=== PATIENT | female | born 1960 | race Two or more races ===

== ENCOUNTER 2016-10-02 21:17 | Emergency (ER) | payer OTHER ==
--- NOTE | ~2016-10-02 | CT71 ---
[facility] A Service of [facility] RADIOLOGY TEXT RESULTS PATIENT: LETTY GOLD LOCATION: [facility] : 62 UNIT #: [id number] AGE: [address]: Thompson Pretty MD SEX: F ORDER DR: [id number] [facility] [address] [place], [place] [address] [id number] E MR#: [id number] Acc #: [id number] NAME: LETTY GOLD : 1960 SEX: F STUDY DATE/TIME: 10/02/2016 21:52 UNIT: [facility] ROOM: STUDY DESCRIPTION: CT Head Wo Contrast Attending Physician: Thompson Pretty Ordering Physician: Ed Hernan Lay M.D. Primary Care Physician: Joelle Veliz [facility] IMAGING REPORT This report is preliminary unless electronic signature is present EXAM CT head 10/02/2016 HISTORY Dizziness today, new onset today, has been passing out today. Denies hitting head. lethargic. TECHNIQUE CT head performed skull base through vertex without intravenous contrast. COMPARISON No comparisons FINDINGS Brain stem unremarkable. Cerebellum and cerebral hemispheres show normal ashton matter - white matter differentiation. No hemorrhage. No evidence of acute cortical ischemia. Midline structures nondisplaced. Basal ganglia intact. Ventricles, cisterns, sulci, normal in size and contour. No intra or extra axial mass effect or abnormal intracranial fluid collection. The visualized intraorbital soft tissues are unremarkable. Visualized paranasal sinuses and mastoid air cells are clear. No fracture. IMPRESSION Normal CT of the head. If the patient has ongoing neurologic symptoms, consider follow up imaging, preferably with MRI if patient is candidate. Dictated by... Felix Blanton M.D. THIS IS AN ELECTRONICALLY VERIFIED REPORT [facility] A Service of [facility] RADIOLOGY TEXT RESULTS PATIENT: LETTY GOLD LOCATION: [facility] : 62 UNIT #: [id number] AGE: [address]: Thompson Pretty MD SEX: F ORDER DR: Fleix Blanton M.D. at 10/03/2016 2:17 PM PRAVEEN/francois TD: 10/03/2016 11:19 JOB #: [id number] MEDICAL IMAGING REPORT Page 1 of 1 COPY
--- NOTE | ~2016-10-02 | EKG ---
PATIENT: LETTY GOLD UNIT #: [id number] Ventricular Rate: 67 BPM Atrial Rate: 67 BPM P-R Interval: 172 ms QRS Duration: 80 ms Q-T Interval: 408 ms QTC Calculation(Bezet): 431 ms P [place]: 61 degrees Calculated R [place]: 70 degrees Calculated T [place]: 73 degrees Diagnosis Line: Normal sinus rhythm Diagnosis Line: Septal infarct , age undetermined Diagnosis Line: Abnormal ECG Diagnosis Line: When compared with ECG of 02-SEP-2016 13:51, Diagnosis Line: No significant change was found Diagnosis Line: Confirmed by KAYLIE MURPHY MD ([id number]) on Diagnosis Line: 10/03/2016 2:25:32 PM INTERPRETING MD: KATHERINE KOCH
[2016-10-02 18:40] LABS: BASOPHIL% 0.4 % (0-2.5); EOSINOPHIL# 0.1 X10e3 (0-0.7); EOSINOPHIL% 1.2 % (0.0-7.0); HEMATOCRIT 39.2 % (35.0-45.0); HEMOGLOBIN 12.3 gm/dL (12.0-16.0); LYMPHOCYTE# 1.8 X10e3 (1.0-3.5); LYMPHOCYTE% 32.7 % (17.0-45.0); MEAN CELL VOLUME 76.5 FL (83-96); MEAN CORPUSCULAR HGB CONC 31.3 g/dL (30-36); MEAN PLATELET VOLUME 8.4 FL (6.5-11.5); MONOCYTE# 0.4 X10e3 (0-1.0); MONOCYTE% 7.3 % (3.0-12.0); NEUTROPHIL# 3.3 X10e3 (1.5-7.1); NEUTROPHIL% 58.4 % (40-75); PLATELET COUNT 188 X10e3 (140-420); RED BLOOD COUNT 5.13 X10e (3.90-5.30); RED CELL DISTRIBUTION WIDTH 15.4 % (11.0-15.5); WHITE BLOOD COUNT 5.6 X10e3 (4.0-10.5)
[2016-10-02 18:42] LABS: DIFF IND NO
[2016-10-02 19:02] LABS: ALBUMIN SERUM 4.1 g/dL (3.5-5.0); ALKALINE PHOSPHATASE 61 U/L (32-92); ALT (SGPT) 16 U/L (10-40); AST (SGOT) 26 U/L (10-42); BILIRUBIN, DIRECT 0.1 mg/dL (0.0-0.2); BILIRUBIN,INDIRECT 0.6 mg/dL (0.0-0.9); BILIRUBIN,TOTAL 0.7 mg/dL (0.2-2.0); BLOOD UREA NITROGEN 12 mg/dL (9-23); CALCIUM SERUM 8.8 mg/dL (8.4-10.2); CARBON DIOXIDE 29 mmol/L (22-31); CHLORIDE 108 mmol/L (100-111); CREATININE SERUM 0.8 mg/dL (0.6-1.4); GLOM FILT RATE Estimated ABOVE60 mL/min (>60); GLUCOSE FASTING 108 mg/dL (70-110); POTASSIUM 3.5 mmol/L (3.5-5.1); PROTEIN TOTAL SERUM 7.2 g/dL (6.0-8.3); SODIUM 141 mmol/L (135-145)
[~2016-10-02 21:17] MED LIST: ISONIAZID300 MG PO; PANTOPRAZOLE SO40 MG PO
[2016-10-02 22:53] LABS: URINE SOURCE CLEAN CATCH
[2016-10-02 22:57] LABS: URINE APPEARANCE TURBID; URINE BILIRUBIN NEG (NEG); URINE BLOOD NEG (NEG); URINE COLOR YELLOW; URINE GLUCOSE NEG (NEG); URINE KETONE TRACE (NEG); URINE LEUKOCYTE ESTERASE 1+ (NEG); URINE NITRATE NEG (NEG); URINE PH 8.5 (5-8); URINE PROTEIN NEG (NEG); URINE SPECIFIC GRAVITY 1.019 (1.003-1.035); URINE UROBILINOGEN 0.2 MG/DL (NEG)
[2016-10-02 22:58] LABS: CULTURE INDICATED? YES; URBCS1 AUWI 0-2 /[HPF] (0-2); URINE BACTERIA AUWI NEG (NEGATIVE); URINE SQUAMOUS EPITHELIAL CELL OCC /[HPF]
[2016-10-03 00:01] LABS: POC - TROPONIN <0.05 ng/mL (<=0.05)
[2016-10-03 01:57] LABS: POC - CKMB <1.0 ng/mL (0.0-7.9); POC - TROPONIN <0.05 ng/mL (<=0.05)
[2017-04-10] MEDS ORDERED: NO MEDICATIONS (07:46)
== END 2016-10-03 02:44 | disposition home or self-care (01) ==
LOC: CED 21:17
PROVIDERS: Emergency Medicine
DX: N39.0 Urinary tract infection, site not specified (principal); I95.9 Hypotension, unspecified; J44.9 Chronic obstructive pulmonary disease, unspecified
CPT/HCPCS: 36415; 70450; 80048; 80076; 81003; 82553; 84484; 85025; 87086; 93005; 99284; J2405

== ENCOUNTER 2016-12-08 19:40 | Emergency (ER) | payer OTHER ==
--- NOTE | ~2016-12-08 | CT71 ---
[facility] A Service of [facility] RADIOLOGY TEXT RESULTS PATIENT: LETTY GOLD LOCATION: [facility] : 62 UNIT #: [id number] AGE: [address]: Thompson Pretty MD SEX: F ORDER DR: [id number] [facility] [address] [place], [place] [address] [id number] E MR#: [id number] Acc #: [id number] NAME: LETTY GOLD : 1960 SEX: F STUDY DATE/TIME: 12/08/2016 22:05 UNIT: [facility] ROOM: STUDY DESCRIPTION: CT Head Wo Contrast Attending Physician: Siva Pretty M.D. Ordering Physician: Ahmet Lay M.D. Primary Care Physician: Joelle Alarcon A.P.R.N. MEDICAL IMAGING REPORT This report is preliminary unless electronic signature is present EXAM CT brain without contrast HISTORY Dizzy. Head numbness. Symptoms for [address] exam was performed with one or more of the following radiation dose reduction techniques: automatic control, adjustment of mA and/or kV according to patient size, and iterative reconstruction. FINDINGS Axial noncontrast images were obtained from the skull base to the vertex. Ventricular size and configuration are normal. There is no evidence of acute infarct or hemorrhage. There are no extra-axial fluid collections. No mass lesion or mass effect is seen. There are no skull fractures. IMPRESSION Normal noncontrast head CT. Dictated by... Basil Bansal M.D. THIS IS AN ELECTRONICALLY VERIFIED REPORT Basil Bansal M.D. at 12/11/2016 10:20 AM ABIGAIL/joseluis TD: 12/09/2016 06:34 JOB #: [id number] MEDICAL IMAGING REPORT Page 1 of 1 COPY
--- NOTE | ~2016-12-08 | EKG ---
PATIENT: LETTY GOLD UNIT #: [id number] Ventricular Rate: 58 BPM Atrial Rate: 58 BPM P-R Interval: 186 ms QRS Duration: 76 ms Q-T Interval: 444 ms QTC Calculation(Bezet): 435 ms P [place]: 57 degrees Calculated R [place]: 58 degrees Calculated T [place]: 61 degrees Diagnosis Line: Sinus bradycardia Diagnosis Line: Septal infarct (cited on or before 02-SEP-2016) Diagnosis Line: Abnormal ECG Diagnosis Line: When compared with ECG of 02-OCT-2016 18:03, Diagnosis Line: No significant change was found Diagnosis Line: Confirmed by BEBETO MORENO MD ([id number]) on Diagnosis Line: 12/11/2016 9:36:46 PM INTERPRETING MD: TIFFANIE KOCH
--- NOTE | ~2016-12-08 | CR72 ---
[facility] A Service of [facility] RADIOLOGY TEXT RESULTS PATIENT: LETTY GOLD LOCATION: [facility] : 62 UNIT #: [id number] AGE: [address]: Thompson Pretty MD SEX: F ORDER DR: [id number] [facility] [address] [place], [place] [address] [id number] E MR#: [id number] Acc #: [id number] NAME: LETTY GOLD : 1960 SEX: F STUDY DATE/TIME: 12/08/2016 21:18 UNIT: [facility] ROOM: STUDY DESCRIPTION: CR Chest Single View Portable Attending Physician: Thompson Pretty Ordering Physician: Ed Doctor [id number] [facility] Primary Care Physician: Joelle Veliz [facility] IMAGING REPORT This report is preliminary unless electronic signature is present EXAM Portable chest HISTORY Chest pain for 3 days. COPD. FINDINGS Patchy rounded nodular density along the lateral margin of the inferior right hilum is very similar to prior studies 10/07/2015 and 05/19/2015, measuring close to 1.5 cm x 1.9 cm in craniocaudal and transverse dimensions. Given its stability over this time frame, a benign etiology is favored. Continued followup is recommended with repeat chest x-ray 06/04/17 in order to document stability over a 2-year time interval. Alternatively, this could be further evaluated with CT chest. Mild cardiac enlargement. Pulmonary vascularity normal. Mild right upper thoracic curve. Mild fibrotic scarring in the lung apices. IMPRESSION 1. Stable patchy nodular lesion along the inferior right hilum compared to prior studies dating back to 06/04/15. A benign etiology is favored given its stability. Followup chest x-ray is recommended in 06/04/17. 2. Mild cardiac enlargement. Dictated by... Basil Bansal M.D. THIS IS AN ELECTRONICALLY VERIFIED REPORT Basil Bansal M.D. at 12/11/2016 10:[address] [facility] A Service of [facility] RADIOLOGY TEXT RESULTS PATIENT: LETTY GOLD [id number] 62 UNIT #: [id number] AGE: [address]: Thompson Pretty MD SEX: F ORDER DR: Kerline TD: 12/09/2016 03:30 JOB #: [id number] MEDICAL IMAGING REPORT Page 1 of 1 COPY
[2016-12-08 21:20] LABS: BASOPHIL% 0.4 % (0-2.5); EOSINOPHIL% 0.7 % (0.0-7.0); HEMATOCRIT 36.2 % (35.0-45.0); HEMOGLOBIN 11.5 gm/dL (12.0-16.0); LYMPHOCYTE# 1.9 X10e3 (1.0-3.5); LYMPHOCYTE% 36.6 % (17.0-45.0); MEAN CELL VOLUME 77.5 FL (83-96); MEAN CORPUSCULAR HEMOGLOBIN 24.6 PG (28-34); MEAN CORPUSCULAR HGB CONC 31.7 g/dL (30-36); MEAN PLATELET VOLUME 8.4 FL (6.5-11.5); MONOCYTE# 0.5 X10e3 (0-1.0); MONOCYTE% 8.8 % (3.0-12.0); NEUTROPHIL# 2.8 X10e3 (1.5-7.1); NEUTROPHIL% 53.5 % (40-75); PLATELET COUNT 182 X10e3 (140-420); RED BLOOD COUNT 4.67 X10e (3.90-5.30); RED CELL DISTRIBUTION WIDTH 15.3 % (11.0-15.5); WHITE BLOOD COUNT 5.2 X10e3 (4.0-10.5)
[2016-12-08 21:21] LABS: DIFF IND NO
[2016-12-08 21:42] LABS: ALBUMIN SERUM 3.9 g/dL (3.5-5.0); BILIRUBIN, DIRECT 0.1 mg/dL (0.0-0.2); BILIRUBIN,INDIRECT 0.5 mg/dL (0.0-0.9); BILIRUBIN,TOTAL 0.6 mg/dL (0.2-2.0); BUN/CREATININE RATIO 26.66; CALCIUM SERUM 8.4 mg/dL (8.4-10.2); CREATININE SERUM 0.6 mg/dL (0.6-1.4); GLOM FILT RATE Estimated 102.6 mL/min (>60); POTASSIUM 3.7 mmol/L (3.5-5.1); PROTEIN TOTAL SERUM 6.5 g/dL (6.0-8.3)
[2016-12-08 21:44] LABS: POC - CKMB <1.0 ng/mL (0.0-7.9); POC - TROPONIN <0.05 ng/mL (<=0.05)
[2017-04-10] MEDS ORDERED: NO MEDICATIONS (07:46)
[2017-04-11] MEDS ORDERED: ALBUTEROL17 GM PO (04:06)
[2017-04-11] MEDS ORDERED: MOTION RELIEF25 MG PO (04:07)
[2017-04-11] MEDS ORDERED: IBUPROFEN400 MG PO (04:09)
[2017-04-11] MEDS ORDERED: HYDROXYZINE PAM25 MG PO (04:12)
[2017-04-11] MEDS ORDERED: BENZONATATE PO (04:15)
[2017-04-11] MEDS ORDERED: FLONASE 0.05% N16 GM (04:15)
== END 2016-12-08 23:44 | disposition home or self-care (01) ==
LOC: CED 19:40
PROVIDERS: Emergency Medicine
DX: R42 Dizziness and giddiness (principal); J44.9 Chronic obstructive pulmonary disease, unspecified
CPT/HCPCS: 36415; 70450; 71010; 80048; 80076; 82553; 84484; 85025; 93005; 99284

== ENCOUNTER 2017-02-13 16:04 | Emergency (ER) | payer OTHER ==
[~2017-02-13] VITALS: Ht 147.3 cm; Wt 49.9 kg
--- NOTE | ~2017-02-13 | CR195 ---
[facility] A Service of [facility] RADIOLOGY TEXT RESULTS PATIENT: LETTY GOLD LOCATION: [facility] : 62 UNIT #: [id number] AGE: [address]: Penelope Brown MD SEX: F ORDER DR: [id number] [facility] [address] [place], [place] [address] [id number] E MR#: [id number] Acc #: [id number] NAME: LETTY GOLD : 1960 SEX: F STUDY DATE/TIME: 02/13/2017 18:01 UNIT: [facility] ROOM: STUDY DESCRIPTION: ALLIE Neck Soft Tissue Attending Physician: Penelope Brown M.D. Referring Physician: Joelle Alarcon A.P.R.N. Ordering Physician: Penelope Brown M.D. Primary Care Physician: Joelle Alarcon A.P.R.N. MEDICAL IMAGING REPORT This report is preliminary unless electronic signature is present EXAM Neck soft tissue series 02/13/2017 HISTORY 56-year-old female with throat pain and cough for 1 week after taking medicine. COMPARISON None. FINDINGS 2 views of the neck soft tissues were performed. The epiglottis and aryepiglottic folds are within normal limits. Prevertebral soft tissues are normal. No radiopaque foreign bodies. No acute bony abnormality. IMPRESSION Unremarkable neck soft tissue series Dictated by... Hiram Rivero M.D. THIS IS AN ELECTRONICALLY VERIFIED REPORT Hiram Rivero M.D. at 02/14/2017 7:52 AM STEVEN/joseluis TD: 02/13/2017 19:56 JOB #: [id number] MEDICAL IMAGING REPORT Page 1 of 1 COPY
--- NOTE | ~2017-02-13 | CR63 ---
[facility] A Service of [facility] RADIOLOGY TEXT RESULTS PATIENT: LETTY GOLD LOCATION: [facility] : 62 UNIT #: [id number] AGE: [address]: Penelope Brown MD SEX: F ORDER DR: [id number] [facility] [address] [place], [place] [address] [id number] E MR#: [id number] Acc #: [id number] NAME: LETTY GOLD : 1960 SEX: F STUDY DATE/TIME: 02/13/2017 UNIT: [facility] ROOM: STUDY DESCRIPTION: CR Chest 2 View Attending Physician: Penelope Brown M.D. Referring Physician: Joelle Moreira Ordering Physician: Penelope Brown M.D. Primary Care Physician: Joelle Moreira MEDICAL IMAGING REPORT This report is preliminary unless electronic signature is present EXAM Two views chest. HISTORY Cough. Chest discomfort, short of air with activity. Cough, throat pain one week ago symptoms began. REPORT PA and lateral radiographs of the chest are presented. COMPARISON 08/31/2016, 12/08/2016, 05/19/2015. FINDINGS Stable mild cardiac enlargement. Lungs well inflated. Calcified granulomata bilaterally. Bilateral nipple shadow artifacts unchanged from prior examinations. Nodular density in the lateral right hilar/infrahilar region measuring about 1.8 cm in diameter unchanged from prior examinations dating to 2014, and therefore, felt to be benign in nature. No new nodular densities. There is no dense airspace disease, pleural effusion or pneumothorax. The mediastinal contours are stable. There is no acute bony abnormality. Dictated by... Felix Blanton M.D. THIS IS AN ELECTRONICALLY VERIFIED REPORT Felix Blanton M.D. at 02/15/2017 1:22 PM [facility] A Service of [facility] RADIOLOGY TEXT RESULTS PATIENT: LETTY GOLD LOCATION: [facility] : 62 UNIT #: [id number] AGE: [address]: Penelope Brown MD SEX: F ORDER DR: PRAVEEN/annette TD: 02/13/2017 20:08 JOB #: [id number] MEDICAL IMAGING REPORT Page 1 of 1 COPY
[2017-04-10] MEDS ORDERED: NO MEDICATIONS (07:46)
[2017-04-11] MEDS ORDERED: ALBUTEROL17 GM PO (04:06)
[2017-04-11] MEDS ORDERED: MOTION RELIEF25 MG PO (04:07)
[2017-04-11] MEDS ORDERED: IBUPROFEN400 MG PO (04:09)
[2017-04-11] MEDS ORDERED: HYDROXYZINE PAM25 MG PO (04:12)
[2017-04-11] MEDS ORDERED: BENZONATATE PO (04:15)
[2017-04-11] MEDS ORDERED: FLONASE 0.05% N16 GM (04:15)
== END 2017-02-13 20:02 | disposition home or self-care (01) ==
LOC: CED 16:04
DX: J02.9 Acute pharyngitis, unspecified (principal); J44.9 Chronic obstructive pulmonary disease, unspecified
CPT/HCPCS: 70360; 71020; 87651; 99284

== ENCOUNTER 2017-02-22 18:51 | Emergency (ER) | payer OTHER ==
[~2017-02-22] VITALS: Ht 152.4 cm; Wt 45.4 kg
--- NOTE | ~2017-02-22 | CT16 ---
[facility] A Service of [facility] RADIOLOGY TEXT RESULTS PATIENT: LETTY GOLD LOCATION: [facility] : 62 UNIT #: [id number] AGE: [address]: Felix Terrazas SEX: F ORDER DR: [id number] [facility] [address] [place], [place] [address] [id number] E MR#: [id number] Acc #: [id number] NAME: LETTY GOLD : 1960 SEX: F STUDY DATE/TIME: 02/22/2017 21:25 UNIT: [facility] ROOM: STUDY DESCRIPTION: CT Angio Chest for PE Attending Physician: Felix Terrazas P.A.-C. Ordering Physician: Felix Terrazas P.A.-C. Primary Care Physician: Joelle Alarcon A.P.R.N. MEDICAL IMAGING REPORT This report is preliminary unless electronic signature is present EXAM Chest CT angiogram with contrast, 02/22/2017 PROCEDURE Axial contrast-enhanced chest CT angiogram with three-dimensional reformats. This CT exam was performed with one or more of the following radiation dose reduction techniques: Automatic exposure control, adjustment of mA and/or kV according to patient size, and iterative reconstruction. COMPARISON None HISTORY One-week history of cough and dyspnea. FINDINGS There is no consolidation, and there is no pneumothorax or effusion. The thoracic aorta is normal in caliber, and bolus timing is excellent. The pulmonary arteries are well opacified. There are areas of pulmonary parenchymal calcified nodules and/or masses and there are some calcified hilar lymph nodes. There is no convincing evidence of pulmonary embolism, however. There is no acute bony abnormality, but there is some bronchial wall thickening and/or narrowing in the right upper lobe anterior segment and in the right middle lobe. Images of the upper abdomen are unremarkable. IMPRESSION 1. There is soft tissue fullness with some bronchial wall thickening and [facility] RADIOLOGY TEXT RESULTS PATIENT: LETTY GOLD LOCATION: [facility] : 62 UNIT #: [id number] AGE: [address]: Felix Terrazas SEX: F ORDER DR: narrowing in the right upper lobe anterior segment and right middle lobe and in the left hilum as well, with partially calcified right middle lobe soft tissue process and a similar process in the right upper lobe and right lower lobe. Findings are concerning for possible mycobacterial infection, including TB or atypical mycobacteria. Fungal process could cause this similar finding. 2. There is no evidence of pulmonary embolism. There is no effusion or pneumothorax, though there are some additional smaller pulmonary nodules or micronodules as well, and again mycobacterial infection, including both typical and atypical agents, should be considered. Dictated by... Ming Willis M.D. THIS IS AN ELECTRONICALLY VERIFIED REPORT Ming Willis M.D. at 03/02/2017 4:55 PM TEV/psc TD: 02/23/2017 04:07 JOB #: [id number] MEDICAL IMAGING REPORT Page 1 of 1 COPY
[2017-02-22 20:20] LABS: BASOPHIL% 0.3 % (0-2.5); DIFF IND NO; HEMATOCRIT 40.3 % (35.0-45.0); HEMOGLOBIN 12.7 gm/dL (12.0-16.0); LYMPHOCYTE# 0.7 X10e3 (1.0-3.5); LYMPHOCYTE% 11.4 % (17.0-45.0); MEAN CELL VOLUME 77.9 FL (83-96); MEAN CORPUSCULAR HEMOGLOBIN 24.5 PG (28-34); MEAN CORPUSCULAR HGB CONC 31.5 g/dL (30-36); MEAN PLATELET VOLUME 8.7 FL (6.5-11.5); MONOCYTE# 0.1 X10e3 (0-1.0); MONOCYTE% 2.3 % (3.0-12.0); NEUTROPHIL# 5.6 X10e3 (1.5-7.1); PLATELET COUNT 221 X10e3 (140-420); RED BLOOD COUNT 5.18 X10e (3.90-5.30); RED CELL DISTRIBUTION WIDTH 14.7 % (11.0-15.5); WHITE BLOOD COUNT 6.5 X10e3 (4.0-10.5)
[2017-02-22 20:35] LABS: ALBUMIN SERUM 4.3 g/dL (3.5-5.0); BILIRUBIN, DIRECT 0.1 mg/dL (0.0-0.2); BILIRUBIN,INDIRECT 0.3 mg/dL (0.0-0.9); BILIRUBIN,TOTAL 0.4 mg/dL (0.2-2.0); BUN/CREATININE RATIO 22.85; CALCIUM SERUM 8.9 mg/dL (8.4-10.2); CREATININE SERUM 0.7 mg/dL (0.6-1.4); GLOM FILT RATE Estimated 97.5 mL/min (>60); POTASSIUM 3.5 mmol/L (3.5-5.1); PROTEIN TOTAL SERUM 7.4 g/dL (6.0-8.3)
[2017-04-10] MEDS ORDERED: NO MEDICATIONS (07:46)
[2017-04-11] MEDS ORDERED: ALBUTEROL17 GM PO (04:06)
[2017-04-11] MEDS ORDERED: MOTION RELIEF25 MG PO (04:07)
[2017-04-11] MEDS ORDERED: IBUPROFEN400 MG PO (04:09)
[2017-04-11] MEDS ORDERED: HYDROXYZINE PAM25 MG PO (04:12)
[2017-04-11] MEDS ORDERED: BENZONATATE PO (04:15)
[2017-04-11] MEDS ORDERED: FLONASE 0.05% N16 GM (04:15)
== END 2017-02-22 23:18 | disposition home or self-care (01) ==
LOC: CED 18:51 → CFTX 18:51
PROVIDERS: Physician Assistant
DX: R05 Cough (principal); J44.9 Chronic obstructive pulmonary disease, unspecified
CPT/HCPCS: 36415; 71275; 80048; 80076; 85025; 85379; 96360; 99284; Q9967

== ENCOUNTER 2017-02-25 00:20 | Emergency (ER) | payer OTHER ==
--- NOTE | ~2017-02-25 | CR72 ---
[facility] A Service of [facility] RADIOLOGY TEXT RESULTS PATIENT: LETTY GOLD LOCATION: [facility] : 62 UNIT #: [id number] AGE: [address]: Max Schultz MD SEX: F ORDER DR: [id number] [facility] [address] [place], [place] [address] [id number] E MR#: [id number] Acc #: [id number] NAME: LETTY GOLD : 1960 SEX: F STUDY DATE/TIME: 02/25/2017 01:15 UNIT: [facility] ROOM: STUDY DESCRIPTION: CR Chest Single View Portable Attending Physician: Max Schultz M.D. Ordering Physician: Max Schultz M.D. Primary Care Physician: Joelle Alarcon A.P.R.N. MEDICAL IMAGING REPORT This report is preliminary unless electronic signature is present EXAM Chest portable 02/25 0115 hours INDICATIONS Shortness of air, cough, congestion for 2 days. FINDINGS AP portable chest compared with chest x-ray from 02/13/[address] from 02/22/2017. Heart size stable. Partially calcified nodules in both lungs, including in the right infrahilar lung and right base, are stable from the prior chest x-ray and prior chest CT. No definite new infiltrates. No pneumothorax. Dictated by... Max Dickerson Jr., M.D. THIS IS AN ELECTRONICALLY VERIFIED REPORT Max Dickerson Jr., M.D. at 02/26/2017 3:13 AM NGUYEN/belen TD: 02/25/2017 20:50 JOB #: [id number] MEDICAL IMAGING REPORT Page 1 of 1 COPY
[2017-04-10] MEDS ORDERED: NO MEDICATIONS (07:46)
[2017-04-11] MEDS ORDERED: ALBUTEROL17 GM PO (04:06)
[2017-04-11] MEDS ORDERED: MOTION RELIEF25 MG PO (04:07)
[2017-04-11] MEDS ORDERED: IBUPROFEN400 MG PO (04:09)
[2017-04-11] MEDS ORDERED: HYDROXYZINE PAM25 MG PO (04:12)
[2017-04-11] MEDS ORDERED: BENZONATATE PO (04:15)
[2017-04-11] MEDS ORDERED: FLONASE 0.05% N16 GM (04:15)
== END 2017-02-25 02:53 | disposition home or self-care (01) ==
LOC: CED 00:20
DX: J40 Bronchitis, not specified as acute or chronic (principal)
CPT/HCPCS: 71010; 94640; 99284

== ENCOUNTER 2017-02-27 00:48 | Emergency (ER) | payer OTHER ==
[~2017-02-27] VITALS: Ht 144.8 cm; Wt 43.1 kg
--- NOTE | ~2017-02-27 | CR72 ---
[facility] A Service of [facility] RADIOLOGY TEXT RESULTS PATIENT: LETTY GOLD LOCATION: [facility] : 62 UNIT #: [id number] AGE: [address]: Clementina Roy APRN SEX: F ORDER DR: [id number] [facility] [address] [place], [place] [address] [id number] E MR#: [id number] Acc #: [id number] NAME: LETTY GOLD : 1960 SEX: F STUDY DATE/TIME: 02/27/2017 04:33 UNIT: [facility] ROOM: STUDY DESCRIPTION: CR Chest Single View Portable Attending Physician: Clementina Roy A.P.R.N. Ordering Physician: Clementina Roy A.P.R.N. Primary Care Physician: Joelle Alarcon A.P.R.N. MEDICAL IMAGING REPORT This report is preliminary unless electronic signature is present EXAM Portable chest, 02/27 at 04:33. INDICATIONS Headache, cough and shortness of air for 2 weeks. FINDINGS AP portable chest compared with 02/25/[address] from 02/22/2017. Cardiac and mediastinal contours are stable. There is emphysema. There is granulomatous disease most pronounced in the right middle lobe. There is chronic scarring at the right base. No acute findings. No pneumothorax. IMPRESSION No active disease. Granulomatous changes are again identified with scarring at the right base. Dictated by... Max Dickerson Jr., M.D. THIS IS AN ELECTRONICALLY VERIFIED REPORT Max Dickerson Jr., M.D. at 02/28/2017 6:04 AM NGUYEN/lawson TD: 02/27/2017 10:21 JOB #: [id number] MEDICAL IMAGING REPORT Page 1 of 1 COPY
[2017-02-27 04:15] LABS: URINE SOURCE CLEAN CATCH
[2017-02-27 04:21] LABS: BASOPHIL% 0.4 % (0-2.5); EOSINOPHIL# 0.1 X10e3 (0-0.7); EOSINOPHIL% 1.2 % (0.0-7.0); HEMATOCRIT 39.8 % (35.0-45.0); HEMOGLOBIN 13.1 gm/dL (12.0-16.0); LYMPHOCYTE# 1.1 X10e3 (1.0-3.5); LYMPHOCYTE% 18.9 % (17.0-45.0); MEAN CELL VOLUME 76.6 FL (83-96); MEAN CORPUSCULAR HEMOGLOBIN 25.2 PG (28-34); MEAN CORPUSCULAR HGB CONC 32.9 g/dL (30-36); MEAN PLATELET VOLUME 7.9 FL (6.5-11.5); MONOCYTE# 0.6 X10e3 (0-1.0); MONOCYTE% 10.3 % (3.0-12.0); NEUTROPHIL# 4.1 X10e3 (1.5-7.1); NEUTROPHIL% 69.2 % (40-75); PLATELET COUNT 190 X10e3 (140-420); RED CELL DISTRIBUTION WIDTH 14.6 % (11.0-15.5); WHITE BLOOD COUNT 5.9 X10e3 (4.0-10.5)
[2017-02-27 04:23] LABS: URINE APPEARANCE CLOUDY; URINE BILIRUBIN NEG (NEG); URINE BLOOD NEG (NEG); URINE COLOR YELLOW; URINE GLUCOSE NEG (NEG); URINE KETONE 1+ (NEG); URINE LEUKOCYTE ESTERASE 2+ (NEG); URINE NITRATE NEG (NEG); URINE PROTEIN NEG (NEG); URINE SPECIFIC GRAVITY 1.018 (1.003-1.035)
[2017-02-27 04:23] LABS: DIFF IND NO
[2017-02-27 04:26] LABS: URBCS1 AUWI 0-2 /[HPF] (0-2); URINE BACTERIA AUWI NEG (NEGATIVE); URINE SQUAMOUS EPITHELIAL CELL FEW /[HPF]
[2017-02-27 04:37] LABS: CULTURE INDICATED? NO
[2017-02-27 04:39] LABS: PARTIAL THROMBOPLASTIN TIME 29.4 SECONDS (23.5-31.3); PROTHROMBIN TIME (PATIENT) 11.3 SECONDS (10.0-11.7)
[2017-02-27 05:03] LABS: BILIRUBIN, DIRECT 0.2 mg/dL (0.0-0.2); BILIRUBIN,INDIRECT 0.8 mg/dL (0.0-0.9); BUN/CREATININE RATIO 18.33; CALCIUM SERUM 8.9 mg/dL (8.4-10.2); CREATININE SERUM 0.6 mg/dL (0.6-1.4); GLOM FILT RATE Estimated 102.6 mL/min (>60); POTASSIUM 3.5 mmol/L (3.5-5.1); PROTEIN TOTAL SERUM 7.3 g/dL (6.0-8.3)
[2017-04-10] MEDS ORDERED: NO MEDICATIONS (07:46)
[2017-04-11] MEDS ORDERED: ALBUTEROL17 GM PO (04:06)
[2017-04-11] MEDS ORDERED: MOTION RELIEF25 MG PO (04:07)
[2017-04-11] MEDS ORDERED: IBUPROFEN400 MG PO (04:09)
[2017-04-11] MEDS ORDERED: HYDROXYZINE PAM25 MG PO (04:12)
[2017-04-11] MEDS ORDERED: BENZONATATE PO (04:15)
[2017-04-11] MEDS ORDERED: FLONASE 0.05% N16 GM (04:15)
== END 2017-02-27 05:58 | disposition home or self-care (01) ==
LOC: CED 00:48
PROVIDERS: Nurse Practitioner
DX: R51 Headache (principal); K21.9 Gastro-esophageal reflux disease without esophagitis; J44.9 Chronic obstructive pulmonary disease, unspecified
CPT/HCPCS: 36415; 71010; 80048; 80076; 81003; 85025; 85610; 85730; 99284

== ENCOUNTER 2017-03-08 08:23 | Emergency (ER) | payer OTHER ==
[2017-04-10] MEDS ORDERED: NO MEDICATIONS (07:46)
[2017-04-11] MEDS ORDERED: ALBUTEROL17 GM PO (04:06)
[2017-04-11] MEDS ORDERED: MOTION RELIEF25 MG PO (04:07)
[2017-04-11] MEDS ORDERED: IBUPROFEN400 MG PO (04:09)
[2017-04-11] MEDS ORDERED: HYDROXYZINE PAM25 MG PO (04:12)
[2017-04-11] MEDS ORDERED: FLONASE 0.05% N16 GM (04:15)
[2017-04-11] MEDS ORDERED: BENZONATATE PO (04:15)
== END 2017-03-08 09:27 | disposition home or self-care (01) ==
LOC: SED 08:23 → CED 08:59 → SED 08:59
DX: H66.93 Otitis media, unspecified, bilateral (principal)
CPT/HCPCS: 99284

== ENCOUNTER → 2017-04-04 | Outpatient (CLI) | payer OTHER ==
[~2017-04-04] MED LIST changes: +ALBUTEROL17 GM PO; +BENZONATATE PO; +FLONASE 0.05% N16 GM; +HYDROXYZINE PAM25 MG PO; +IBUPROFEN400 MG PO; +MOTION RELIEF25 MG PO; +NO MEDICATIONS
[2017-04-07 00:55] LABS: NIL 0.32 IU/mL (()); QUANTIFERON POSITIVE (Negative); TB AG-NIL >10.00 IU/mL (())
== END | disposition home or self-care (01) ==
LOC: CLAB 10:52
PROVIDERS: Internal Medicine Pulmonary Disease
DX: J47.0 Bronchiectasis with acute lower respiratory infection (principal)
CPT/HCPCS: 36415; 86480